=== PATIENT | female | born 2005 | race Caucasian/White ===

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

== ENCOUNTER 2024-04-12 05:25 | Emergency (ER) | payer BC, SELFPAY ==
[2024-04-12 05:29] VITALS: BP 110/65; PULSE 78; RESP 16; TEMP 36.3; O2SAT 97; BMI 31.1
--- NOTE | 2024-04-12 06:03 | ED.GENADULT ---
HPI - General Adult General Chief complaint: Headache/Migraine Stated complaint: headaches/vomiting Time Seen by Provider: 04/12/24 05:42 Source: patient and family Mode of arrival: ambulatory Limitations: no limitations History of Present Illness HPI narrative: 19-year-old female presents with 5 day history of intermittent headache and fever, fatigue. Symptoms started , initially had some sore throat and body aches per her description. She also had a little back pain that radiated to the left side mid last week that only lasted 1 day. Reports that she is feeling thirsty and fatigued. States that she was evaluated in urgent care on Wednesday, sounds like it was sarah. Headache is located in the bilateral frontal region. No trauma or injury. States that she vomited x1 this morning due to the headache. Reports some neck pain as well but is very nondescript with this. Denies abdominal pain. Tried taking some ibuprofen this morning but reports that she threw it up promptly. Says that her fever has been as high as 100.8 during the last 5 days, no fever present here today. No dysuria, no gynecological changes. Last menstrual period started about 2 weeks ago, denies chance of . No bloody stools, no diarrhea. No rashes. Also reports increased thirst. States that strep testing, blood work was negative at the urgent care on Wednesday. Reports there is a little bit of blood in her urine but otherwise negative. No seizures, neurological changes. Past medical history notable for depression. Reports that she has been on 20 mg of Prozac since November. Denies prior surgery. No other long-term medications, nonsmoker. ROS is notable for the generalized, HEENT, GI symptoms as described above, otherwise denies times 12 systems. Related Data Home Medications Medication Instructions Recorded Confirmed fluoxetine 20 mg capsule 20 mg PO DAILY 04/09/24 04/09/24 Allergies Allergy/AdvReac Type Severity Reaction Status Date / Time Penicillins Allergy Unknown Rash Verified 04/09/24 11:48 [facility] Social History Smoking Status: Never smoker How often do you have a drink containing alcohol: never AUDIT-C Alcohol total score: 0 Non-prescribed substance use: denies use Exam Const: Vital Signs, click to edit/add: Vital Signs - 24 hr 04/12/24 05:29 Temperature 97.3 F L Pulse Rate [Left P ulse Oximeter] 78 Respiratory Rate 16 Blood Pressure [Ri ght Upper Arm] 110/65 Pulse Oximetry 97 Oxygen Delivery Me thod Room Air Documenting provider has reviewed patient's vital signs: yes Common normals: alert Orientation/consciousness: Yes awake Other: Very flat affect but will answer questions appropriately. Does move her neck easily and freely to allow me to look in her ears. Mother does try to answer questions for patient. Well nourished, well hydrated, makes appropriate eye contact. HENMT: Common normals: normocephalic, head/scalp atraumatic and TM's normal bilaterally Head and scalp: normocephalic and atraumatic Face and sinus: normal facial exam Tympanic membrane: TM's normal bilaterally Mouth: oral and palatal mucosa normal Throat: posterior oropharynx normal Eye: Common normals: PERRL, EOMs intact bilaterally and conjunctivae normal Conjunctiva: conjunctiva(e) normal Pupil: PERRL Neck & C-Spine: Common normals: full ROM and no lymphadenopathy Other: Does not willingly flex and move neck but will do so on distracted exam. Brudzinski's and Kernig signs are negative. No point tenderness to the cervical spine. Resp: Common normals: normal respiratory effort, no use of accessory muscles and clear to auscultation bilaterally Effort & inspection: able to speak in complete sentences Auscultation: clear to auscultation bilaterally Cardio: Common normals: regular rate, regular rhythm, S1 normal heart sound, S2 normal heart sound and no murmurs Rate: regular rate Rhythm: regular rhythm Heart sounds: S1 normal and S2 normal GI: Common normals: Normal to inspection, nondistended, normoactive bowel sounds present, soft to palpation, non-tender, no hepatosplenomegaly and no masses Palpation: soft and no hepatosplenomegaly Back & Pelvis: Other: Mild left-sided CVA tenderness. No midline spinal tenderness. Extremity: Common normals: normal to inspection, full ROM, normal capillary refill and no joint enlargement Neuro: Sensorium/orientation: awake and alert Cranial nerves: CN normal except as noted Speech: speech normal Gait (neuro): normal gait (Observed ambulating to exam room) Motor exam: strength 5/5 throughout and no movement abnormalities noted Other: Again, she does guard the neck on exam but through distracted movements does seem to have normal range of motion and is not exhibiting true meningeal signs. Kernig and Brudzinski signs are negative Psych: Other: Flat but with good insight. Normal thought process and logic. Skin: Common normals: no rashes or lesions noted General skin exam: no rashes or lesions noted Course Course ED Course: Her reported fever at home with no evidence of fever, hypotension, tachycardia or sepsis here today. Differential diagnosis including viral syndrome, occult UTI, meningitis, encephalitis, mono, dehydration, migraine, among others. I would like to get some blood work prior to moving into a lumbar puncture. As stated in the exam, I do not see overwhelming evidence of meningeal signs. Await blood work. If white count, CRP and or procalcitonin are elevated would recommend CT and then possibly lumbar puncture. Will give 1 L of normal saline, 15 of Toradol and 4 of Zofran while we await findings. I will also attempt to track down her urgent care records. Additional testing for mono, tick borne illness, Lyme in addition to typical labs. Reevaluation(s) Time of Reevaluation #1: 07:23 Reevaluation #1: Re-evaluated symptoms, headache somewhat improved, nausea improved after Zofran and Toradol. Reviewed lab findings. Inflammatory marker minimally elevated. Liver enzymes mildly elevated but not in an obstructive pattern, more likely viral illness. White blood cell count, procalcitonin, electrolytes are remainder of studies are reassuring. Viral swabs are negative. Suspect viral illness as was documented in urgent care note which I was able to find. Patient continues to be afebrile here. On my repeat exam she is freely moving her head from side to side and is not noticing increased pain or stiffness with this. We discussed lumbar puncture. I really do think that the risk outweighs the benefit in her case. She is still not exhibiting any symptoms of photophobia or other neurological changes. Recommended symptomatic treatment with Toradol and Zofran at home, lots of fluids, recheck with primary care provider if not starting to improve in 5 more days. Encourage repeat liver enzyme and mono testing at that time if still symptomatic. Patient will have send out tests for tick-borne illnesses. The to the back in about 5-7 days. I will follow up on them in my inbox on my next shift next Wednesday, 5 days from now. Alarm symptoms reviewed that would warrant ED presentation in the interim. She verbalizes understanding and agreement. Vital Signs Vital signs: Initial Vital Signs Temperature 97.3 F L 04/12/24 05:29 Temperature Source Temporal Artery Scan 04/12/24 05:29 Pulse Rate 78 04/12/24 05:29 Pulse Rhythm Regular 04/12/24 05:29 Respiratory Rate 16 04/12/24 05:29 Blood Pressure 110/65 04/12/24 05:29 Blood Pressure Mean 80 04/12/24 05:29 Blood Pressure Position Sitting 04/12/24 05:29 Pulse Oximetry 97 04/12/24 05:29 Oxygen Delivery Method Room Air 04/12/24 05:29 Vital Signs Temperature 97.3 F L 04/12/24 05:29 Pulse Rate 78 04/12/24 05:29 Respiratory Rate 16 04/12/24 05:29 Blood Pressure 110/65 04/12/24 05:29 Pulse Oximetry 97 04/12/24 05:29 Oxygen Delivery Method Room Air 04/12/24 05:29 Temperature 97.3 F L 04/12/24 05:29 Pulse Rate 78 04/12/24 05:29 Respiratory Rate 16 04/12/24 05:29 Blood Pressure 110/65 04/12/24 05:29 Pulse Oximetry 97 04/12/24 05:29 Oxygen Delivery Method Room Air 04/12/24 05:29 Medications Administered Medications: Discontinued Medications Generic Name Dose Route Start Last Admin Trade Name Freq PRN Reason Stop Dose Admin Sodium Chloride 1,000 mls @ 1,000 mls/hr 04/12/24 05:57 04/12/24 06:22 0.9 % Sodium Chloride 1000 Ml IV 04/12/24 06:56 1,000 mls/hr .Q1H FREDERICK Administration Ketorolac Tromethamine 15 mg 04/12/24 05:56 04/12/24 06:22 Ketorolac 15 Mg/Ml Inj IVP 04/12/24 05:57 15 mg ONCE ONE Administration Ondansetron HCl 4 mg 04/12/24 05:56 04/12/24 06:22 Ondansetron 2 Mg/Ml Inj IVP 04/12/24 05:57 4 mg ONCE ONE Administration Medical Decision Making Lab Data Lab results reviewed: Yes I reviewed the patient's lab results Lab results narrative: Pro count negative, white count negative, viral swabs negative. Liver enzymes minimally elevated as is CRP. Suspicious overall for viral infection. Labs: Lab Results 04/12/24 Range/Units 06:10 WBC 4.43 L (4.50-11.00) K/uL RBC 4.38 (4.00-5.20) m/uL Hgb 12.7 (12.0-16.0) gm/dL Hct 38.7 (33.0-51.0) % MCV 88 (80-100) fL MCH 29 (26-34) pg MCHC 33 (32-36) gm/dL RDW Coeff of Keshia 12.8 (11.5-15.5) % Plt Count 110 L (140-440) K/uL Neut % (Auto) 49.2 (42.0-72.0) % Lymph % (Auto) 41.3 (20-44) % [place] % (Auto) 8.1 (0.0-11.0) % Eos % (Auto) 0.5 (0.0-7.0) % Baso % (Auto) 0.2 (0.0-3.0) % Neut # (Auto) 2.20 (1.7-7.0) K/uL Lymph # (Auto) 1.80 (0.90-2.90) K/uL [place] # (Auto) 0.40 (0.00-0.90) K/UL Eos # (Auto) 0.00 (0.00-0.50) K/uL Baso # (Auto) 0.00 (0.00-0.30) K/uL Abs Immat Gran (auto) 0.00 (0.00-0.30) K/uL Imm/Tot Granulo (auto) 0.7 % Diff Slide Review Acceptable Review (Acceptable) Sodium 140 (135-149) mmol/L Potassium 3.9 (3.6-5.1) mmol/L Chloride 106 (96-114) mmol/L Carbon Dioxide 27 (20-32) mmol/L Anion Gap 7 (7-15) mEq/L BUN 11 (5-24) mg/dL Creatinine 0.8 (0.5-1.5) mg/dL Estimated Creat Clear 88.72 Estimated GFR 108 ml/min Glucose 91 (60-115) mg/dL Calcium 9.0 (8.4-10.6) mg/dL Total Bilirubin 0.4 (0.1-1.5) mg/dL AST 77 H (12-35) U/L ALT 110 H (4-35) U/L Alkaline Phosphatase 103 (40-150) U/L C-Reactive Protein 1.7 H (0.5-1.0) mg/dL Total Protein 7.1 (6.0-8.3) g/dL Albumin 4.1 (3.3-5.0) g/dL Procalcitonin 0.11 (<0.50) ng/mL SARS-CoV-2 (PCR) Negative SARS-CoV-2 (Negative) Monoscreen Negative (Negative) Influenza Type A (PCR) Negative PCR FLU A (Negative) Influenza Type B (PCR) Negative PCR FLU B (Negative) RSV (PCR) Negative PCR RSV (Negative) Discharge Plan Discharge Clinical Impression: Viral illness Patient Disposition: Home w/ Parent or Adult Condition: Stable Instructions: Viral Syndrome (ED) Additional Instructions: As we discussed, blood work is overall reassuring. Liver enzymes are mildly elevated which tends to go along with a nonspecific viral illness. White count, inflammatory markers, procalcitonin are all quite reassuring. Electrolytes, kidney function and viral swabs look normal. As discussed, the mono test is negative but it may not turn positive until the 10th day of illness. This is an important limitation of the test to recognize. I am glad that the Toradol and Zofran helped her symptoms a little bit. Chances are you have about another 5 days of this mild illness. If you start having neurological changes, seizures, return if high fevers over 100.4, severe weakness, come back to the emergency room. If her symptoms have not started to improve in 5 additional days, please make a follow-up appointment with your primary care provider for further send out testing that I cannot run in the emergency room. The only pending tests that I have right now are the tick borne and Lyme panels. These will be back in about 5-7 days. You will be notified if these are positive. As discussed, the only way that I can not rule out meningitis is to do a lumbar puncture test. Based on exam and blood work, I think that the risk outweighs the benefit. I do hope that things improve for you in the next few days. I have sent a prescription for some Toradol which is an anti-inflammatory pain medication and also some Zofran which is an anti nausea medicine you may use to help reduce your symptoms in the meantime. Activity Level: Activity as Tolerated Discharge Diet: Regular Prescriptions: No Action fluoxetine 20 mg capsule 20 mg PO DAILY Follow Up/Referrals: Noris Avendaño, PAT [Primary Care Provider] - Stand Alone Forms: [employer] Info Instructions
--- OUTSIDE RECORDS SUMMARY | 2024-04-12 06:03 | XMS_ITS | Clinical Summary ---
Author Name Unknown Organization [facility] Address [place], [place] [address] Care Team Providers Care Plumber Maintenance Name Role Phone Noris Avendaño NP Primary Care Provider Allergies Active Allergy Reactions Criticality Noted Date Comments Penicillins Hives 11/30/2007 Medications Medication Sig Dispensed Refills Start Date End Date Status FLUoxetine (PROZAC) 20 mg capsuleIndications:D epression, recurrent (HC) TAKE 1 CAPSULE BY MOUTH EVERY MORNING. 90 Capsule 03/07/2024 Active Active Problems Problem Noted Date Diagnosed Date Depression, recurrent 12/17/2023 Encounters Date Type Department Care Team Description 03/07/[address] [id number] Noris Avendaño NP Refill Request (Fluoxetine) from Last 3 Months Immunizations Name Administration Dates Next Due COVID-19 Vaccine Spikevax (M oderna 50mcg/0.5mL) 12YO+ [id number] Formula PF 12/17/2023 COVID-19 vaccine (Pfizer-Bio NTech 30mcg/0.3mL) 12YO+ BIVALENT PF, MDV 11/24/2022 COVID-19 vaccine (Pfizer-Bio NTech 30mcg/0.3mL) 12YO+ JULIÁN-SUCROSE PF, MDV 06/24/2022 COVID-19 vaccine (Pfizer-Bio NTech 30mcg/0.3mL) PF, MDV 08/22/2021,08/01/2021 DTaP 03/14/2009, 5,2004,07/16,2004 Dtap-5 Pertussis Antigens 03/14/2009 HIB PRP-OMP (PedvaxHIB) 06/24/2005,2004, HIB-HepB (Comvax) 06/24/2005,2004,05/12/20 04 HPV 9 (Gardasil 9) 06/19/2016 Hepatitis A (Peds) 06/19/2016,11/28/2012 Hepatitis B (Peds) 06/24/2005, 4,2004,03/13 Human Papilloma Virus Vaccine 06/19/2016, 015,04/11/2015 Human Papilloma Virus Vaccin e, Unspecified 06/11/2015 Inactivated Polio Vaccine 03/14/2009,,2004,05/12 Influenza Virus, Unspecified 12/12/2014, 11/28/2012,09/30/2010,10/24 Influenza, IIV3 (Age >=3 years) 11/28/2012,09/12 Influenza, IIV4 12/17/2023 Influenza, Injectable, Mdck, Quadrivalent, W/preservative 08/01/2021 Influenza, Live, Intranasal Laiv3 09/30/2010 MMR 03/14/2009,03/16/2005 Meningococcal Vaccine (Menactra) 07/29/2021,03/29 Pneumococcal conj 7-Valent (Prevnar 7) 0 06/24/2005,2004,2004,05/12 Tdap 04/11/2015 Varicella Vaccine 03/14/2009,03/16/2005 Social History Tobacco Use Types Packs/Day Years Used Date Smoking Tobacco: Never Smokeless Tobacco: Never Alcohol Use Standard Drinks/Week Comments Never 0 (1 standard drink = 0.6 oz pur e alcohol) PHQ-2 Answer Date Recorded PHQ-2 TOTAL SCORE 2 12/17/2023 Social Connections Answer Date Recorded Frequency of Communication with Friends and Fami ly Not on file 07/16/2022 Sex and Gender Information Value Date Recorded Sex Assigned at Not on file Gender Identity Not on file Sexual Orientation Not on file Obstetrics History Last Filed Vital Signs Vital Sign Reading Time Taken Comments Blood Pressure 104/58 12/17/2023 8:21 AM PAPERHANGER ASSISTANT Pulse 68 12/17/2023 8:21 AM PAPERHANGER ASSISTANT Temperature - - Respiratory Rate 16 12/17/2023 8:21 AM PAPERHANGER ASSISTANT Oxygen Saturation - - Inhaled Oxygen Concentration - - Weight 79.8 kg (176 lb) 12/17/2023 8:21 AM PAPERHANGER ASSISTANT Height 157.5 cm (5' 2) 12/17/2023 8:21 AM PAPERHANGER ASSISTANT Body Mass Index 32.19 12/17/2023 8:21 AM PAPERHANGER ASSISTANT Plan of Treatment Health Maintenance Due Date Last Done Comments HIV for age 15-65 2019 Hepatitis C screening for age 18-79 2022 Well Child Check for age 3-20 07/16/2023 07/16/2022 Influenza for age 9-49 07/30/2024 , 08/01/2021, 12/12/2014, Additional history exists BMI (ht and wt on same day) for age 18+ 12/17/2024 12/17/2023 Depression screening for age 12+ 12/17/2024 12/17/2023, 07/16/2022 Tetanus booster 04/11/2025 04/11/2015 Pneumococcal series for age 6-64 Aged Out 06/24/2005, 2004, 2004, Additional history exists No longer eligible based on patient's age to complete this topic Tdap Completed 04/11/2015 HPV series for age 9-26 Completed 06/19/20 16, 06/19/2016, 06/11/2015, Additional history exists Meningococcal series for age 11-21 Completed 07/29/2021, 04/11/2015 COVID-19 vaccine series Completed 12/17/19 24, 11/24/2022, 06/24/2022, Additional history exists Care Teams Plumber Maintenance Relationship Specialty Start Date End Date Noris Avendaño NP [address] [place] [id number] PCP - General Nurse Practitioner - Family 07/16/22
[2024-04-12 06:20] LABS: Basophils Percent Auto 0.2 % (0.0-3.0); Eosinophils Percent Auto 0.5 % (0.0-7.0); Hematocrit 38.7 % (33.0-51.0); Hemoglobin* 12.7 gm/dL (12.0-16.0); Immature Granulocytes Pct Auto 0.7 %; Lymphocytes Percent Auto 41.3 % (20-44); Mean Corpuscular HGB Conc 33 gm/dL (32-36); Mean Corpuscular Hemoglobin 29 pg (26-34); Mean Corpuscular Volume 88 fL (80-100); Monocytes Percent Auto 8.1 % (0.0-11.0); Neutrophils Percent Auto 49.2 % (42.0-72.0); Platelet Count* 110 K/uL (140-440); RDW Coefficient of Variation % 12.8 % (11.5-15.5); Red Blood Count 4.38 m/uL (4.00-5.20); White Blood Count* 4.43 K/uL (4.50-11.00)
[2024-04-12] MEDS: KETOROLAC 15 MG/ML inj IVP (06:22)
[2024-04-12] MEDS: ONDANSETRON 2 MG/ML inj 4 MG IVP (06:22)
[2024-04-12] MEDS: 0.9 % SODIUM CHLORIDE 1000 ml 1,000 ML IV (06:22)
[2024-04-12 06:30] LABS: Mono Screen* Negative (Negative)
[2024-04-12 06:32] LABS: Slide Review Reflex Yes
[2024-04-12 06:35] LABS: Albumin* 4.1 g/dL (3.3-5.0); Chloride* 106 mmol/L (96-114); Sodium* 140 mmol/L (135-149)
[2024-04-12 06:36] LABS: Potassium* 3.9 mmol/L (3.6-5.1)
[2024-04-12 06:38] LABS: Alanine Aminotransferase* 110 U/L (4-35); Alkaline Phosphatase* 103 U/L (40-150); Anion Gap 7 mEq/L (7-15); Aspartate Amino Transferase* 77 U/L (12-35); Bilirubin Total* 0.4 mg/dL (0.1-1.5); Blood Urea Nitrogen* 11 mg/dL (5-24); Carbon Dioxide* 27 mmol/L (20-32); Creatinine* 0.8 mg/dL (0.5-1.5); Est. Creatinine Clearance* 88.72; Estimated Glomerular Filt Rate 108 ml/min; Total Protein* 7.1 g/dL (6.0-8.3)
[2024-04-12 06:39] LABS: Glucose* 91 mg/dL (60-115)
[2024-04-12 06:41] LABS: C Reactive Protein* 1.7 mg/dL (0.5-1.0)
[2024-04-12 06:55] LABS: Procalcitonin* 0.11 ng/mL (<0.50)
[2024-04-12 06:56] LABS: Slide Review Acceptable Review (Acceptable)
[2024-04-12 06:59] LABS: PCR FLU A Negative PCR FLU A (Negative); PCR FLU B Negative PCR FLU B (Negative); PCR RSV Negative PCR RSV (Negative); SARS PCR* Negative SARS-CoV-2 (Negative)
[2024-04-12 07:32] VITALS: BP 112/60; PULSE 68; RESP 18; O2SAT 97
[2024-04-13 23:59] LABS: Lyme ELISA Reflex 0.26 IV (<=0.90)
[2024-04-15 09:55] LABS: Anaplasma phagocyt PCR Not Detected; Babesia microti by PCR Not Detected; Babesia species by PCR Not Detected; Ehrlichia chaffeensis by PCR Not Detected; Ehrlichia ewingii/canis by PCR Not Detected; Ehrlichia muris-like by PCR Not Detected
== END 2024-04-12 07:36 | disposition home or self-care (01) ==
PROVIDERS: Emergency Provider Family Medicine; PCP Nurse Practitioner Family
DX: B34.9 Viral infection, unspecified (principal)
CPT/HCPCS: 36415; 80053; 81003; 84145; 85025; 86140; 86308; 86618; 87468; 87469; 87484; 87631; 87798; 96374; 96375; 99283; 99284; J1885; J2405; J7030

== ENCOUNTER 2025-04-20 09:30 | Outpatient (RCR) | payer BC, SELFPAY | END 2025-07-26 16:38 | disposition home or self-care (01) | PROVIDERS: PCP Nurse Practitioner Family; Visit Provider Orthopaedic Surgery | DX: M25.562 Pain in left knee (principal); M22.2X9 Patellofemoral disorders, unspecified knee; M76.30 Iliotibial band syndrome, unspecified leg; M25.561 Pain in right knee; Z51.89 Encounter for other specified aftercare | CPT/HCPCS: 97110; 97140; 97161 ==